=== PATIENT | female | born 1960 | race Caucasian/White ===

== ENCOUNTER 2017-05-04 13:58 | Emergency (ER) | payer SELFPAY ==
[2017-05-04] MEDS ORDERED: NORMAL SALINE 250 ML IV PRN ×2 (14:42)
--- NOTE | 2017-05-04 14:55 | ER Document Report ---
ED Medical Screen (RME) - General Chief Complaint: Abnormal Lab Results Stated Complaint: ABNORMAL LABS Time Seen by Provider: 05/04/17 14:41 Notes: pt sent for hgb of 6.9, one previous transfusion. denies any bleeding at this time. TRAVEL OUTSIDE OF THE [place] IN LAST 30 DAYS: No - Related Data Allergies/Adverse Reactions: No Known Allergies Allergy (Verified 05/04/17 14:08) Past Medical History - Past Medical History Cardiac Medical History: Denies: Hx Coronary Artery Disease, Hx Heart Attack, Hx Hypertension Pulmonary Medical History: Denies: Hx Asthma, Hx Bronchitis, Hx COPD, Hx Pneumonia Neurological Medical History: Denies: Hx Cerebrovascular Accident, Hx Seizures Renal/ Medical History: Denies: Hx Peritoneal Dialysis Musculoskeltal Medical History: Denies Hx Arthritis - Immunizations Hx Diphtheria, Pertussis, Tetanus Vaccination: Yes Physical Exam - Vital signs Vitals: Temp Pulse Resp BP Pulse Ox 97.6 F 111 H 18 113/61 98 05/04/17 14:08 05/04/17 14:08 05/04/17 14:08 05/04/17 14:08 05/04/17 14:08 Course - Vital Signs Vital signs: Temp Pulse Resp BP Pulse Ox 97.6 F 111 H 18 113/61 98 05/04/17 14:08 05/04/17 14:08 05/04/17 14:08 05/04/17 14:08 05/04/17 14:08
--- NOTE | 2017-05-04 17:04 | ER Document Report ---
ED General - General Mode of Arrival: Ambulatory Information source: Patient TRAVEL OUTSIDE OF THE [place] IN LAST 30 DAYS: No - HPI Patient complains to provider of: abnormal labs Associated symptoms: Other - See above <KENNEDI HILL - Last Filed: 05/04/17 18:35> <SUSAN GUY - Last Filed: 05/04/17 22:41> - General Chief Complaint: Abnormal Lab Results Stated Complaint: ABNORMAL LABS Time Seen by Provider: 05/04/17 14:41 Notes: Patient is a 56 year old female who presents to the emergency department after being told she had abnormal lab results. Patient states that she was seen at [facility] in April for a ruptured cecum, she did not receive surgery but had a drain put in and was administered antibiotics. Patient came back to the area on April 29 and has been feeling better, complains of some mild nausea but denies vomiting and reports she has gained some weight back after loosing 20 pounds before going in for care. Today, Dr. Boston caller her and said her hemoglobin was abnormal and to come to the ED for further testing. Before being treated patient had started having abdominal pain in early March as well as decreased appetite, poor fluid intake and vomiting. (KENNEDI HILL) - Related Data Allergies/Adverse Reactions: No Known Allergies Allergy (Verified 05/04/17 14:08) Past Medical History - General Information source: Patient - Social History Smoking Status: Current Every Day Smoker Chew tobacco use (# tins/day): - 15 Frequency of alcohol use: None Drug Abuse: None Family History: Reviewed & Not Pertinent Patient has suicidal ideation: No Patient has homicidal ideation: No Past Surgical History: Reports: Hx Hysterectomy, Hx Orthopedic Surgery - Open Reduction R Humerus - Immunizations Hx Diphtheria, Pertussis, Tetanus Vaccination: Yes <KENNEDI HILL - Last Filed: 05/04/17 18:35> Review of Systems - Review of Systems Constitutional: No symptoms reported EENT: No symptoms reported Cardiovascular: No symptoms reported Respiratory: No symptoms reported Gastrointestinal: See HPI, Nausea. denies: Vomiting Genitourinary: No symptoms reported Female Genitourinary: No symptoms reported Musculoskeletal: No symptoms reported Skin: No symptoms reported Hematologic/Lymphatic: No symptoms reported Neurological/Psychological: No symptoms reported -: Yes All other systems reviewed and negative <KENNEDI HILL - Last Filed: 05/04/17 18:35> Physical Exam <KENNEDI HILL - Last Filed: 05/04/17 18:35> - Skin Skin Color: Pale <SUSAN GUY - Last Filed: 05/04/17 22:41> - Vital signs Vitals: Temp Pulse Resp BP Pulse Ox 97.6 F 111 H 18 113/61 98 05/04/17 14:08 05/04/17 14:08 05/04/17 14:08 05/04/17 14:08 05/04/17 14:08 - Notes Notes: GENERAL: Alert, interacts well. No acute distress. HEAD: Normocephalic, atraumatic. EYES: Pupils equal, round, and reactive to light. Extraocular movements intact. ENT: Oral mucosa moist, tongue midline. NECK: Full range of motion. Supple. Trachea midline. LUNGS: Clear to auscultation bilaterally, no wheezes, rales, or rhonchi. No respiratory distress. HEART: Regular rate and rhythm. 2 out of 6 systolic murmur. No gallops, or rubs. ABDOMEN: Soft, no tenderness to deep palpation. Non-distended. Bowel sounds present in all 4 quadrants. Small nodule in left lower quadrant with superficial scarring consistent to drain placement. RECTAL: Non tender, no hemorrhoids, no visualized stool. EXTREMITIES: Moves all 4 extremities spontaneously. No edema, radial and dorsalis pedis pulses 2/4 bilaterally. No cyanosis. NEUROLOGICAL: Alert and oriented x3. Normal speech. PSYCH: Normal affect, normal mood. SKIN: Warm, dry, normal turgor. No rashes or lesions noted. (KENNEDI HILL) Course - Laboratory Result Diagrams: 05/04/17 16:00 <KENNEDI HILL - Last Filed: 05/04/17 18:35> - Laboratory Result Diagrams: 05/04/17 16:00 <SUSAN GUY - Last Filed: 05/04/17 22:41> - Re-evaluation Re-evalutation: 05/04/17 21:30 CBC obtained as an outpatient shows hemoglobin of 6.9, patient was transfused 2 units of PRBCs here, ESR and CRP are both elevated at 97 and 43.2 respectively, chemistries show slightly low potassium at 3.3 otherwise unremarkable, urinalysis shows moderate leukocyte esterase but no blood with 23 WBCs, 1 RBCs. Occult blood is negative. 05/04/17 21:31 Urine was sent for culture, suspect urine may be colonized from the stone in her bladder that has been there for many months, no evidence of infection on physical exam or history at this time. No evidence of intra-abdominal infection , no perinephric stranding on CAT scan that would indicate pyelonephritis. We will hold off on additional abx given that she is already getting INVANZ daily. Patient is feeling much better after receiving blood and will be discharged to home to have continued abx infusions daily as an outpatient. 05/04/17 21:35 uncertain where the blood loss is coming from. heme negative stool. Patient is to follow-up as an outpatient with primary care physician. 05/04/17 21:46 Patient notes that 3 mm stone in her right ureter has been there for several weeks, they found that while she was in the hospital in [place]. (SUSAN GUY) - Vital Signs Vital signs: Temp Pulse Resp BP Pulse Ox 98.6 F 86 26 H 122/66 97 05/04/17 21:53 05/04/17 21:50 05/04/17 21:50 05/04/17 21:30 05/04/17 21:50 - Laboratory Laboratory results interpreted by me: 05/04/17 05/04/17 05/04/17 16:00 16:00 16:00 Potassium 3.3 L Calcium 8.0 L AST 12 L Total Protein 5.3 L Albumin 2.4 L Ur Leukocyte Esterase MODERATE H Crossmatch See Detail Critical Care Note - Critical Care Note Total time excluding time spent on procedures (mins): 35 <SUSAN GUY - Last Filed: 05/04/17 22:41> Discharge <KENNEDI HILL - Last Filed: 05/04/17 18:35> <SUSAN GUY - Last Filed: 05/04/17 22:41> - Discharge Clinical Impression: Calculus of proximal right ureter Anemia Qualifiers: Anemia type: unspecified type Qualified Code(s): D64.9 - Anemia, unspecified Condition: Stable Disposition: HOME, SELF-CARE Additional Instructions: Today you have a 3 mm kidney stone on your right hand side. This should hopefully pass on its own. We gave you 2 units of blood and your hemoglobin was 6.9. CAT scan of your belly did not show any signs of infection that would need surgery at this time. It is very important that you continue to follow-up to finish your antibiotics. It is also important that you follow-up with your primary care physician to figure out why you have lost blood. Please have your hemoglobin rechecked in 3- 4 days. There was no blood in your stool on examination today. Shahbaz Attestation: 05/04/17 22:41 I personally performed the services described in the documentation, reviewed and edited the documentation which was dictated to the scribe in my presence, and it accurately records my words and actions. (SUSAN GUY) Scribe Documentation - Scribe Written by Shahbaz:: shahbaz Bradford, 05/04/17, 849 acting as scribe for :: Deshawn <KENNEDI HILL - Last Filed: 05/04/17 18:35>
[2017-05-04 17:42] LABS: ALANINE AMINOTRANSFERASE 20 U/L (9-52); ALBUMIN 2.4 g/dL (3.5-5.0); ALKALINE PHOSPHATASE 91 U/L (38-126); ANION GAP 8 (5-19); ASPARTATE AMINO TRANSFERASE 12 U/L (14-36); BILIRUBIN,DIRECT 0.3 mg/dL (0.0-0.4); BILIRUBIN,TOTAL 0.3 mg/dL (0.2-1.3); BLOOD UREA NITROGEN 9 mg/dL (7-20); CARBON DIOXIDE 28 mmol/L (22-30); CHLORIDE 105 mmol/L (98-107); CREATININE RESULT 0.69 mg/dL (0.52-1.25); GLUCOSE 86 mg/dL (75-110); POTASSIUM 3.3 mmol/L (3.6-5.0); SODIUM 141.3 mmol/L (137-145); TOTAL PROTEIN 5.3 g/dL (6.3-8.2)
[2017-05-04 17:52] LABS: APPEARANCE,URINE SLIGHTLY-CLOUDY; BILIRUBIN,URINE NEGATIVE (NEGATIVE); GLUCOSE, URINE NEGATIVE (NEGATIVE); KETONES,URINE NEGATIVE (NEGATIVE); LEUKOCYTE ESTERASE,URINE MODERATE (NEGATIVE); NITRITE,URINE NEGATIVE (NEGATIVE); PROTEIN,URINE NEGATIVE (NEGATIVE); UROBILINOGEN,URINE NEGATIVE mg/dL (<2.0)
--- NOTE | 2017-05-04 20:53 | RADIOLOGY REPORT (SQ) ---
EXAM DESCRIPTION: CT ABD/PELVIS WITH IV ORAL COMPLETED DATE/TIME: 05/04/2017 8:23 pm REASON FOR STUDY: abd pain, N/V, recent LLQ abscess COMPARISON: None. TECHNIQUE: CT scan of the abdomen and pelvis performed using helical scanning technique with dynamic intravenous contrast injection and oral contrast. Images reviewed with lung, soft tissue, and bone w indows. Reconstructed coronal and sagittal MPR images reviewed. Delayed images for evaluation of the urinary system also acquired. All images stored on PACS. All CT scanners at this facility use dose modulation, iterative reconstruction, and/or weight based d osing when appropriate to reduce radiation dose to as low as reasonably achievable (ALARA). [facility]: Dose Right [facility]: CareDose [facility]: Dose Right [facility]: Teradose 4D [facility]: Flamsred CONTRAST TYPE AND DOSE: 44 Isovue 370- low osmolar. RENAL FUNCTION: Creatinine 0.69 RADIATION DOSE: Up-to-date CT equipment and radiation dose reduction techniques were employed. CTDIv ol: 4.9 - 6.2 mGy. DLP: 570 mGy-cm.. LIMITATIONS: None. FINDINGS: LOWER CHEST: No significant findings. No nodules or infiltrates. LIVER: Normal size. No masses. No dilated ducts. SPLEEN: Normal size. 2.6 cm in diameter relative low density mass is identified in the spleen. Ther e may be an associated central calcification. PANCREAS: No masses. No significant calcifications. No adjacent inflammation or peripancreatic fluid collections. Pancreatic duct not dilated. GALLBLADDER: No identified stones by CT criteria. No inflammatory changes to suggest cholecystitis. ADRENAL GLANDS: No significant masses or asymmetry. RIGHT KIDNEY AND URETER: No solid masses. No renal calculi are identified. A 3 mm in diameter obst ructing calculus is identified in the proximal right ureter best seen on image number 46. There is hydronephrosis of the right kidney and dilatation of the right ureter proximal to the obstructing jorge culus LEFT KIDNEY AND URETER: No solid masses. No significant calcifications. No hydronephrosis or hydr oureter. AORTA AND VESSELS: No aneurysm. No dissection. Renal arteries, SMA, celiac without stenosis. RETROPERITONEUM: No retroperitoneal adenopathy, hemorrhage or masses. BOWEL AND PERITONEAL CAVITY: No masses or inflammatory changes. No free fluid or peritoneal masses. APPENDIX: Normal. PELVIS: No mass. No free fluid. A 4.8 x 3.4 cm in diameter bladder calculus is identified. ABDOMINAL WALL: No masses. No hernias. BONES: No significant or acute findings. OTHER: No other significant finding. IMPRESSION: 3 mm obstructing calculus in the proximal right ureter. No renal calculi are identified . Large bladder calculus is identified. Other findings as noted above TECHNICAL DOCUMENTATION: JOB ID: [id number] Quality ID # [id number]: Final reports with documentation of one or more dose reduction techniques (e.g., Au tomated exposure control, adjustment of the mA and/or kV according to patient size, use of iterative reconstruction technique) 2010 [employer]- All Rights Reserved
[2017-05-04 21:32] VITALS: BP 122/66
== END 2017-05-04 22:01 | disposition home or self-care (01) ==
LOC: ER 13:58
DX: N20.1 Calculus of ureter (principal); D64.9 Anemia, unspecified; R11.0 Nausea; R10.9 Unspecified abdominal pain; R63.0 Anorexia; F17.200 Nicotine dependence, unspecified, uncomplicated
CPT/HCPCS: 99285; 86900; 86901; 36415; 87086; 36430; 86850; 82272; 80053; 81001; 86920; 74177; P9016

== ENCOUNTER → 2020-10-02 | Outpatient (CLI) | payer SELFPAY ==
[~2020-10-02] MED LIST: COVID-19 VACCINE (PFIZER)/PF 30 MCG/0.3 ML VIAL IM ONE; EPINEPHRINE INJ/PF 1 MG/1 ML AMPULE IM PRN
== END ==
LOC: EMPHEALTH 13:58
PROVIDERS: ATTEND Internal Medicine
DX: Z23 Encounter for immunization (principal)
CPT/HCPCS: 91300

== ENCOUNTER → 2020-10-23 | Outpatient (CLI) | payer SELFPAY | LOC: EMPHEALTH 09:19 | PROVIDERS: ATTEND Internal Medicine | DX: Z23 Encounter for immunization (principal) | CPT/HCPCS: 91300 ==